=== PATIENT | female | born 1975 | race American Indian/Alaskan Native ===

== ENCOUNTER 2016-09-12 13:59 | Outpatient (CLI) | payer SELFPAY ==
--- NOTE | 2016-09-12 16:51 | Ultrasound Report ---
Transabdominal and transvaginal pelvic ultrasound Findings: The uterus is normal in size and configuration with no focal abnormalities. Endometrial echo measures 12 mm in thickness. The right ovary is normal. There is a 1.7 cm in diameter complex lesion in the left ovary. There is minimal free fluid within the cul-de-sac. Impression: Small complex lesion in the left ovary, otherwise unremarkable study.
== END 2016-09-12 14:00 | disposition home or self-care (01) ==
LOC: US 13:59
PROVIDERS: ATTEND Obstetrics & Gynecology
DX: D25.1 Intramural leiomyoma of uterus (principal); N83.8 Other noninflammatory disorders of ovary, fallopian tube and broad ligament
CPT/HCPCS: 76830; 76856